=== PATIENT | male | born 1975 | race African-American/Black ===

== ENCOUNTER 2024-02-06 08:41 | Day surgery (SDC) | payer OTHER ==
[~2024-02-06] VITALS: Ht 177.8 cm; Wt 86.2 kg
[2024-02-06] MEDS ORDERED: KETOROLAC 30 MG/ML VIAL ONE (09:38)
[2024-02-06] MEDS: LIDOCAINE 2% 100 MG/5 ML UJET TP ONE (10:03)
== END 2024-02-06 11:16 | disposition home or self-care (01) ==
LOC: MDS 08:41 → MMU 08:42 → MDS 11:16
PROVIDERS: ATTEND Internal Medicine Gastroenterology
DX: Z12.11 Encounter for screening for malignant neoplasm of colon (principal); K63.5 Polyp of colon; I10 Essential (primary) hypertension; E11.9 Type 2 diabetes mellitus without complications; E78.00 Pure hypercholesterolemia, unspecified; Z79.899 Other long term (current) drug therapy
CPT/HCPCS: 82948; J1885